=== PATIENT | male | born 1945 | race Caucasian/White ===

== ENCOUNTER → 2022-07-01 13:10 | Outpatient (BNVA) | payer MEDICARE, OTHER, SELFPAY | PROVIDERS: Visit Provider Thoracic Surgery (Cardiothoracic Vascular Surgery) | DX: T33.532A Superficial frostbite of left finger(s), initial encounter (principal); X31.XXXA Exposure to excessive natural cold, initial encounter | CPT/HCPCS: 99212 ==

== ENCOUNTER 2025-03-17 21:52 | Inpatient (IN) | payer MEDICARE, OTHER, SELFPAY ==
[2025-03-17 22:03] VITALS: BP 183/104; PULSE 88; RESP 20; TEMP 37.9; O2SAT 95
--- NOTE | 2025-03-17 22:54 | XRR_ITS ---
PROCEDURE INFORMATION: Exam: XR Chest Exam date and time: 03/17/2025 11:19 PM Age: 80 years old Clinical indication: Other: General weakness; EMS arrival for supposed fall. Patient found down on floor by family. Patient very lethargic. ; Additional info: Possible sepsis TECHNIQUE: Imaging protocol: Radiologic exam of the chest. Views: 1 view. COMPARISON: No relevant prior studies available. FINDINGS: Lungs: Interstitial opacification in the right upper lobe is present. Suggested emphysematous changes. No confluent consolidation. Pleural spaces: Unremarkable. No pleural effusion. No pneumothorax. Heart/Mediastinum: Unremarkable. No cardiomegaly. Vasculature: Atherosclerotic changes of the aorta are noted. Bones/joints: Unremarkable. XR/XR chest 1V portable [id number] IMPRESSION: Findings concerning for asymmetric pulmonary edema and/or interstitial pneumonia of the right upper lobe.
--- NOTE | 2025-03-17 22:54 | CTR_ITS ---
PROCEDURE INFORMATION: Exam: CT Head Without Contrast Exam date and time: 03/17/2025 11:32 PM Age: 80 years old Clinical indication: Injury or trauma; Blunt trauma (contusions or hematomas); Other: General weaknss; EMS arrival for supposed fall. Patient found down on floor by family. Patient very lethargic. ; Additional info: Weakness, fall TECHNIQUE: Imaging protocol: Computed tomography of the head without contrast. Radiation optimization: All CT scans at this facility use at least one of these dose optimization techniques: automated exposure control; mA and/or kV adjustment per patient size (includes targeted exams where dose is matched to clinical indication); or iterative reconstruction. COMPARISON: No relevant prior studies available. RADIATION DOSE METRICS: Total DLP (mGy-cm): 990.38 FINDINGS: Brain: Age-indeterminate lacunar infarct of the left basal ganglia. Age-indeterminate, chronic appearing right basal ganglia lacunar infarcts. Age-indeterminate right internal capsule infarct (series 11, image 32). Periventricular white matter hypoattenuation favors sequela of chronic ischemic microvascular disease. No acute intracranial hemorrhage. Cerebral ventricles: Ex vacuo ventricular dilatation is noted. Paranasal sinuses: Visualized sinuses are unremarkable. No fluid levels. Mastoid air cells: Visualized mastoid air cells are well aerated. Orbital cavities: Bilateral cataract extractions are noted. Bones: Unremarkable. No acute fracture. Soft tissues: Unremarkable. CT/CT head wo con* [id number] IMPRESSION: 1. Age-indeterminate left basal ganglia infarct. 2. 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 3. Given multifocal areas of age-indeterminate, chronic appearing focal infarcts, CTA/MRI brain without contrast can be obtained if clinical concern for acute infarct is present. 4. No acute intracranial hemorrhage. 5. White matter changes favored to represent sequela of chronic microvascular disease.
[2025-03-17] MEDS: acetaminophen 1,000 MG/100 ML PIGGYBACK 400 MG IV (23:19)
[2025-03-17 23:39] LABS: Hematocrit 50.1 % (37-53); Hemoglobin 16.80 g/dL (11.27-16.99); Mean Corpuscular HGB Conc 33.5 g/dL (30-55); Mean Corpuscular Hemoglobin 30.5 pg (27-33); Mean Corpuscular Volume 91.1 fl (82-101); Nucleated Red Blood Cells % 0 %; Platelet Count 142 10^3/cmm (157-399); Red Blood Count 5.50 10^6/uL (3.85-5.65); White Blood Count 12.71 10^3/uL (3.29-11.43)
[2025-03-17 23:53] LABS: Alanine Aminotransferase 17 U/L (0-41); Albumin Level 4.1 g/dL (3.5-5.2); Alkaline Phosphatase 94 U/L (40-130); Anion Gap 23.8 (5-19); Aspartate Amino Transferase 29 U/L (0-40); Blood Urea Nitrogen 37 mg/dL (8-23); Calcium 9.3 mg/dL (8.5-10.5); Carbon Dioxide 22 mmol/L (22-29); Chloride 93 mmol/L (98-107); Globulin 3.8 g/dL (1.3-4.6); Glucose 132 mg/dL (65-115); Lactic Sepsis W/Reflex 3.0 mmol/L (0.5-2.2); Osmolality Calculated 289 mOsm/kg (285-295); Potassium 4.8 mmol/L (3.5-5.1); Sodium 134 mmol/L (136-145); Total Protein 7.9 g/dL (6.6-8.7)
[2025-03-17 23:59] LABS: Procalcitonin 0.66 ng/mL (0-0.5)
[2025-03-18] VITALS (16 sets, daily range): BP systolic 130–145; BP diastolic 75–90; PULSE 70–101; RESP 15–20; TEMP 36.4–36.8; O2SAT 92–95
[2025-03-18 00:17] LABS: Reflex Lactate Order REFLEX LACTIC ORDERD
[2025-03-18 00:30] LABS: Glucose Urine UA Negative (Normal); Nitrate Urine Negative (Negative); Specific Gravity, Urine 1.018 (1.005-1.030)
[2025-03-18 00:35] LABS: Add Urine Microscopic? YES
--- NOTE | 2025-03-18 00:37 | CTR_ITS ---
PROCEDURE INFORMATION: Exam: CTA Head With Contrast, Arteriography Exam date and time: 03/18/2025 12:51 AM Age: 80 years old Clinical indication: Other: Lethargy/age indeterminate infarcts; Severe lethargy. Multiple age indertminate infarcts noted on head w/o. ; Additional info: Possible subacute basal ganglia infarcts on plain CT TECHNIQUE: Imaging protocol: Computed tomographic angiography of the head with contrast. Exam focused on the arteries. 3D rendering (Not supervised by radiologist): MIP and/or 3D reconstructed images were created by the technologist. Radiation optimization: All CT scans at this facility use at least one of these dose optimization techniques: automated exposure control; mA and/or kV adjustment per patient size (includes targeted exams where dose is matched to clinical indication); or iterative reconstruction. Contrast material: [id number]; Contrast volume: 100 ml; Contrast route: INTRAVENOUS (IV); COMPARISON: CT head wo con* [id number] 03/17/2025 11:32 PM RADIATION DOSE METRICS: Total DLP (mGy-cm): 436.53 FINDINGS: ANTERIOR CIRCULATION: Right internal carotid artery: Intracranial segment is patent with no significant stenosis. No aneurysm. Right middle cerebral artery: No occlusion or significant stenosis. No aneurysm. Right anterior cerebral artery: No occlusion or significant stenosis. No aneurysm. Left internal carotid artery: Intracranial segment is patent with no significant stenosis. No aneurysm. Left middle cerebral artery: No occlusion or significant stenosis. No aneurysm. Left anterior cerebral artery: No occlusion or significant stenosis. No aneurysm. POSTERIOR CIRCULATION: Right vertebral artery: No occlusion or significant stenosis. No aneurysm. Left vertebral artery: No occlusion or significant stenosis. No aneurysm. Basilar artery: No occlusion or significant stenosis. No aneurysm. Right posterior cerebral artery: No occlusion or significant stenosis. No aneurysm. Left posterior cerebral artery: No occlusion or significant stenosis. No aneurysm. Other arteries: Atherosclerosis without substantial stenosis of the carotid siphons bilaterally. Brain: No definite mass, mass effect, or midline shift. Cerebral ventricles: No ventriculomegaly. Bones/joints: Unremarkable. No acute fracture. Soft tissues: Unremarkable. PROCEDURE INFORMATION: Exam: CTA Neck With Contrast Exam date and time: 03/18/2025 12:51 AM Age: 80 years old Clinical indication: Other: Lethargy/age indeterminate infarcts; Severe lethargy. Multiple age indertminate infarcts noted on head w/o. ; Additional info: Possible subacute basal ganglia infarcts on plain CT TECHNIQUE: Imaging protocol: Computed tomographic angiography of the neck with contrast. Exam focused on the cervical segments of the vasculature. 3D rendering (Not supervised by radiologist): MIP and/or 3D reconstructed images were created by the technologist. Radiation optimization: All CT scans at this facility use at least one of these dose optimization techniques: automated exposure control; mA and/or kV adjustment per patient size (includes targeted exams where dose is matched to clinical indication); or iterative reconstruction. Contrast material: [id number]; Contrast volume: 100 ml; Contrast route: INTRAVENOUS (IV); COMPARISON: CT head wo con* [id number] 03/17/2025 11:32 PM RADIATION DOSE METRICS: Total DLP (mGy-cm): 436.53 FINDINGS: Right common carotid artery: Atherosclerosis of the right common carotid without focal stenosis. Right internal carotid artery: 35% stenosis at the proximal right internal carotid artery secondary to focal atherosclerosis . Right external carotid artery: No occlusion or stenosis of the origin. Left common carotid artery: Atherosclerosis of the left common carotid without focal stenosis. Left internal carotid artery: No stenosis of the extracranial segment. No dissection or occlusion. Left external carotid artery: No occlusion or stenosis of the origin. Right vertebral artery: No stenosis. No dissection or occlusion. Left vertebral artery: No stenosis. No dissection or occlusion. Right subclavian artery: Mild stenosis of the distal right subclavian artery (series 5, image 33) secondary to focal atherosclerosis up to 24%. Soft tissues: Normal. No significant soft tissue swelling. Bones/joints: Degenerative joint and disc disease is seen in the imaged spine. Lungs: Partially imaged consolidation in the dependent right upper lobe. Centrilobular emphysematous changes are present. CT/CT angio headneck* [id number] IMPRESSION: No large vessel stenosis or occlusion. IMPRESSION: 1. No large vessel occlusion or stenosis in the neck. 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 2. Partially imaged findings concerning for right upper lobe pneumonia. Correlate with patient history/respiratory status. 3. Emphysema. REFERENCES: NASCET CRITERIA. The degree of stenosis in the cervical segment of the internal carotid artery is based on NASCET criteria. Normal is no stenosis. Mild is less than 50% stenosis. Moderate is 50-69% stenosis. Severe is 70% to 99% stenosis. Total occlusion is no detectable patent lumen.
[2025-03-18 00:53] LABS: UA Slide Review UA Slide Review Perf
[2025-03-18] MEDS: iohexol 350 mg/mL 500 mL Btl (per mL) IV (00:53)
--- NOTE | 2025-03-18 02:14 | W.ED.WEAKNES ---
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 Over the past week he had been walking slower and reportedly ate very little, with no complaints voiced to the friend. EMS brought him in from [place], [place] with T 100.3, BP 183/104, HR 88, RR 20, SpO2 95% RA. On arrival, he was described as altered and somnolent with a coarse wet-sounding cough. No report of focal deficits. Friend had to break in the door; pt stated he was coming to the door but did not get up. No additional ROS provided. Physical Exam Narrative: EXAM NARRATIVE: Gen: Cachectic, somnolent, altered. HEENT: Dry mucous membranes. Lungs: Coarse, wet-sounding cough. Neuro: Altered, somnolent; no obvious lateralizing deficits noted. HENMT: COMMON NORMALS: normocephalic and atraumatic HEAD & SCALP: normocephalic and atraumatic Eye: COMMON NORMALS: Equal, round and reactive pupils present, EOMs intact bilaterally and no scleral icterus PUPIL: Yes Equal, round and reactive pupils present GI: COMMON NORMALS: Normal to inspection, nondistended, normoactive bowel sounds present, Soft to palpation and non-tender PALPATION: Yes Soft to palpation Skin: COMMON NORMALS: no rashes or lesions noted GENERAL SKIN EXAM: no rashes or lesions noted Course Vital Signs: Vital signs: Vital Signs Temperature 98.2 F 03/18/25 00:38 Pulse Rate 88 03/18/25 00:38 Respiratory Rate 18 03/18/25 00:38 Blood Pressure 131/75 03/18/25 00:38 Pulse Oximetry 92 03/18/25 00:38 Oxygen Delivery Me thod Room Air 03/18/25 00:38 MDM - Weakness Medical Decision Making 80 yo M found down with weakness, week of slowed gait and poor PO intake, now febrile and altered with wet cough. Friend reports he is usually active and independent. VS notable for fever and severe HTN; SpO2 95% RA. PE: cachectic, dry mucosa, somnolent/altered, coarse wet cough, no clear focal deficits. DDx includes respiratory etiology per provider. Stroke not excluded given altered state and found-down scenario, though no lateralizing deficits on exam. Meningitis not suspected. Dehydration considered given dry mucosa and poor intake. Rhabdomyolysis considered given down time. Broad infectious/metabolic evaluation initiated. Respiratory pathogen panel sent. CK ordered to assess for rhabdomyolysis. Further testing to evaluate for infection, dehydration, and intracranial processes planned per provider. Results pending. CT head and CTA head do not show clear evidence of stroke. X-ray of the lungs is concerning for right upper lobe pneumonia for which she was started on cefepime. With his coarse, wet cough I believe this to be the case. Creatinine is 2.5 and I am uncertain of his baseline kidney function thus he may have acute kidney injury giving a component of metabolic encephalopathy contributing to his weakness. He will be started on cefepime and admitted to the hospitalist service for further observation care Lab Data 03/17/25 23:21 03/17/25 23:21 Radiology Impressions Chest X-Ray 03/17/25 22:54 IMPRESSION: Findings concerning for asymmetric pulmonary edema and/or interstitial pneumonia of the right upper lobe. Head CT 03/17/25 22:54 IMPRESSION: 1. Age-indeterminate left basal ganglia infarct. 2. 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 3. Given multifocal areas of age-indeterminate, chronic appearing focal infarcts, CTA/MRI brain without contrast can be obtained if clinical concern for acute infarct is present. 4. No acute intracranial hemorrhage. 5. White matter changes favored to represent sequela of chronic microvascular disease. ADDENDUM: 03/18/25 0039 THIS REPORT CONTAINS FINDINGS THAT MAY BE CRITICAL TO PATIENT CARE. The findings were verbally communicated via telephone conference with HAMMAD WALKER at 12:37 AM CDT on 03/18/2025. The findings were acknowledged and understood. Head/Neck CTA 03/18/25 00:37 IMPRESSION: No large vessel stenosis or occlusion. IMPRESSION: 1. No large vessel occlusion or stenosis in the neck. 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 2. Partially imaged findings concerning for right upper lobe pneumonia. Correlate with patient history/respiratory status. 3. Emphysema. REFERENCES: NASCET CRITERIA. The degree of stenosis in the cervical segment of the internal carotid artery is based on NASCET criteria. Normal is no stenosis. Mild is less than 50% stenosis. Moderate is 50-69% stenosis. Severe is 70% to 99% stenosis. Total occlusion is no detectable patent lumen. Laboratory Results WBC 12.71 10^3/uL (3.29-11.43) H 03/17/25 23:21 RBC 5.50 10^6/uL (3.85-5.65) 03/17/25 23:21 Hgb 16.80 g/dL (11.27-16.99) 03/17/25 23:21 Hct 50.1 % (37-53) 03/17/25 23:21 MCV 91.1 fl (82-101) 03/17/25 23:21 MCH 30.5 pg (27-33) 03/17/25 23:21 MCHC 33.5 g/dL (30-55) 03/17/25 23:21 RDW 13.9 % (12.1-15.1) 03/17/25 23:21 Plt Count 142 10^3/cmm (157-399) L 03/17/25 23:21 MPV 11.9 fL (7.4-10.4) H 03/17/25 23:21 Neut % (Auto) 81.2 % 03/17/25 23:21 Lymph % (Auto) 12.7 % 03/17/25 23:21 [place] % (Auto) 5.7 % 03/17/25 23:21 Eos % (Auto) 0.0 % 03/17/25 23: Baso % (Auto) 0.2 % 03/17/25 23:21 Neut # (Auto) 10.30 10^3/uL (1.8-7.7) H 03/17/25 23:21 Lymph # (Auto) 1.6 10^3/uL (0.8-4.8) 03/17/25 23:21 [place] # (Auto) 0.7 10^3/uL (0.2-0.9) 03/17/25 23:21 Eos # (Auto) 0.0 10^3/uL (0.0-0.8) 03/17/25 23:21 Baso # (Auto) 0.0 10^3/uL (0.0-0.1) 03/17/25 23:21 Nucleated RBC % (auto) 0 % 03/17/25 23:21 Nucleated RBCs # 0.0 /100WBC 03/17/25 23:21 Sodium 134 mmol/L (136-145) L 03/17/25 23:21 Potassium 4.8 mmol/L (3.5-5.1) 03/17/25 23:21 Chloride 93 mmol/L (98-107) L 03/17/25 23:21 Carbon Dioxide 22 mmol/L (22-29) 03/17/25 23:21 Anion Gap 23.8 (5-19) H 03/17/25 23:21 BUN 37 mg/dL (8-23) H 03/17/25 23:21 Creatinine 2.5 mg/dL (0.7-1.2) H 03/17/25 23:21 GFR Calculation Not Reportable 03/17/25 23:21 Glucose 132 mg/dL (65-115) H 03/17/25 23:21 Calculated Osmolality 289 mOsm/kg (285-295) 03/17/25 23:21 Lactic Acid 3.0 mmol/L (0.5-2.2) H 03/17/25 23:21 Calcium 9.3 mg/dL (8.5-10.5) 03/17/25 23:21 Total Bilirubin 0.7 mg/dL (0.15-1.2) 03/17/25 23:21 AST 29 U/L (0-40) 03/17/25 23:21 ALT 17 U/L (0-41) 03/17/25 23:21 Alkaline Phosphatase 94 U/L (40-130) 03/17/25 23:21 Creatine Kinase 328 U/L (39-308) H* 03/17/25 23:21 Total Protein 7.9 g/dL (6.6-8.7) 03/17/25 23:21 Albumin 4.1 g/dL (3.5-5.2) 03/17/25 23:21 Globulin 3.8 g/dL (1.3-4.6) 03/17/25 23:21 Procalcitonin 0.66 ng/mL (0-0.5) H 03/17/25 23:21 Urine Color Dark yellow (Yellow) A 03/18/25 00:15 Urine Appearance Cloudy (CLEAR) A 03/18/25 00:15 Urine pH 5.0 (5-7) 03/18/25 00:15 Ur Specific [place] 1.018 (1.005-1.030) 03/18/25 00:15 Urine Protein 2+ (Negative) A 03/18/25 00:15 Urine Glucose (UA) Negative (Normal) 03/18/25 00:15 Urine Ketones Trace (Negative) 03/18/25 00:15 Urine Blood 1+ (Negative) A 03/18/25 00:15 Urine Nitrate Negative (Negative) 03/18/25 00:15 Urine Bilirubin Negative (Negative) 03/18/25 00:15 Urine Urobilinogen 1.0 mg/dL (Negative) 03/18/25 00:15 Ur Leukocyte Esterase Trace (Negative) A 03/18/25 00:15 Urine RBC 0-2 /hpf (0-2) 03/18/25 00:15 Urine WBC 11-20 /hpf (0-5) H 03/18/25 00:15 Ur Squamous Epith Cells 21-50 /hpf (0-5) H 03/18/25 00:15 Amorphous Sediment Not Reportable 03/18/25 00:15 Urine Bacteria None seen /hpf (NONE) 03/18/25 00:15 Hyaline Casts 82.33 /lpf 03/18/25 00:15 Fine Granular Casts 0-4 /lpf H 03/18/25 00:15 Other Casts Waxy /lpf 03/18/25 00:15 All radiology interpretation(s) finalized by discharge Discharge Plan Discharge Condition: Stable Print Language: New Zealander Coding Level of Care Code 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
--- NOTE | 2025-03-18 02:16 | P.HP_ITS ---
Providers/Chief Complaint 2 Admitting Physician: Jaison Vaughn MD Chief Complaint: WEAKNESS History of Present Illness Quoc Spence Jr is a 80 year old male who lives in [place]. He was missed when he did not show up for lunch so one of the staff at the restaurant or friend went to his house and found him down. He altered mental status and temperature of 100.3. He was brought in to the emergency department by ambulance where he was found to have CK3 28 and a creatinine of 2.5 as well as a lactic acid of 3. Patient received fluid boluses and cefepime for right upper lobe pneumonia. Lactic acid dropped to 1.8. Patient has a Hughes and is making urine. Serology came back for COVID-positive disease he is not requiring oxygen with room air sat 94% Patient is slow to respond to questioning. He reports minimal weight loss and states that he is always been thin. He does not recall being found down on the floor and states he lives alone. Patient reports quitting alcohol 1 week ago and chronically drank 1-2 shots a day. He smokes 1 pack/day for 50 years and states he quit drugs 2 years ago which consisted of weed and cocaine but not heroin or meth. Patient has a very flat affect and although he answers questions reliability is somewhat questionable. Patient tells me he is 80 years old birthdate 1945 but he thought he was in [place] did know he was in [place] but admitted to come to the hospital by ambulance and states he lives in [place]. He thought it was March 15, 2010 Review of Systems 2 Narrative: General denies fevers chills states he is cold or hot depending on the environment. Admits to weight loss but stated only a couple pounds at night 30 pound weight loss over the similar severe weight loss. Cardiovascular no chest pain palpitations Respiratory positive for coughing states he has done that as he is a smoker denies production with his cough GI no nausea vomiting diarrhea constipation no dysuria hematuria incontinence Neuro no seizures strokes limb weakness Malignancy negative Hematologic denies clots in the legs or lungs Medications/Allergies Allergies Allergy/AdvReac Type Severity Reaction Status Date / Time No Known Allergies Allergy Verified 03/18/25 03:10 PFSH Acute 2 PFSH: Medical History (Updated 03/18/25 @ 03:37 by Jaison Vaughn MD) Tobacco abuse Social History (Updated 03/18/25 @ 03:34 by Jaison Vaughn MD) Smoking and tobacco/nicotine status: heavy tobacco/nicotine user cigarettes Packs smoked per day: 1 Years cigarettes smoked: 50 Alcohol intake: former Year of sobriety/quit date alcohol: 2024 Former alcohol use details: States he quit 1 week ago as of questioning 03/18/2025 Substance/Drug Use: former Date of last use: Estimated 2 years ago as of 03/18/2025 Former substance use details: Used cocaine and weed denies meth or heroin Additional social history: Wants full CODE STATUS as discussed with Jaison Vaughn MD on 03/18/2025. States lives alone is and his next of kin is Jazmine Bruce who lives in [place] and his daughter. He states he talked to her about a month ago but does not talk to her often enough. He has listed a friend to notify as Collette Junior [phone] patient states his daughter was notified by a friend. Previous occupational history: Worked in [employer] for [employer] in [place] for 30 years Vitals/I&O/Wt Last Vital Signs Temp 98.2 F 03/18/25 00:38 Pulse 88 03/18/25 00:38 Resp 18 03/18/25 00:38 BP 131/75 03/18/25 00:38 Pulse Ox 92 03/18/25 00:38 O2 Del Method Room Air 03/18/25 00:38 03/17/25 03/17/25 03/18/25 14:59 22:59 06:59 Intake Total 0 / 0 Balance 0 / 0 Physical Exam 2 Narrative: General well-developed chronically ill-appearing thin male disheveled Oropharynx edentulous Mallampati 1 yellowish-green phlegm in the left posterior pharynx CV regular rate and rhythm Lungs moist sounding cough nonproductive but does demonstrate yellowish-green phlegm in the throat Abdomen positive bowel tones soft nontender Calves no tenderness cords pretibial edema Skin warm and dry Mentation is flat affect he is alert and oriented to person birthdate age in February but thought it was 19 February/2010. He did not know how he got here or who called the ambulance Data 03/17/25 23:21 03/17/25 23:21 Micro: Microbiology 09/20/25 23:21 Blood Culture - Preliminary Blood SPECIMEN COLLECTED A&P Assessment and plan 1. COVID-19: Patient not requiring oxygen but he does have moist cough and right upper lung pneumonia with suspected bacterial superinfection. Will check D-dimer and CRP. If significant elevated will increase his anticoagulation and steroids 2. 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 Acute kidney injury: Fluid hydration and recheck BMP at 1400 4. Altered mental status: Dehydrated and malaised. Patient is cooperative. Unsure of his baseline will follow 5. Tobacco abuse: Start nicotine patch PDMP PDMP Reviewed: Not Reviewed Attestations 2 Medical Necessity Statement*: Patient is admitted to hospital with right upper lung pneumonia that looks bacterial as well as COVID 19 positive. He is anticipated to require greater than 2 midnights Coding Level of Care Code Acute Code for Chg Fwd Diagnoses COVID-19 U07.1 Community acquired pneumonia of right upper lobe of lung J18.9 Acute kidney injury N17.9 Altered mental status R41.82 Tobacco abuse Z72.0
[2025-03-18] MEDS: cefepime 1,000 mg SDV 1000 MG IVP (02:24)
[2025-03-18 02:35] LABS: Coronavirus 229E,HKU1,NL63,OC4 Not Detected (NOT DETECT); Parainfluenza Virus Type 1 Not Detected (NOT DETECT); Parainfluenza Virus Type 2 Not Detected (NOT DETECT); Parainfluenza Virus Type 3 Not Detected (NOT DETECT); Parainfluenza Virus Type 4 Not Detected (NOT DETECT)
[2025-03-18 02:41] LABS: Lactic Acid level (Lactate) 1.8 mmol/L (0.5-2.2)
[2025-03-18 03:13] LABS: SARS-COV-2 Detected (NOT DETECT)
[2025-03-18] MEDS: sodium chlor 0.9% + KCl 20 mEq 20 MEQ/1,000 ML BAG 100 MEQ IV ×3 (03:41→23:31)
[2025-03-18 04:06] LABS: INR 0.87 (0.8-1.2); Partial Thromboplastin Time 33.2 SECONDS (23.9-36.7); Prothrombin Time 12.50 SECONDS (12.1-14.9)
--- NOTE | 2025-03-18 08:20 | PC.PHAR ---
Addendum entered by Юлия Greer 03/18/25 09:21: Pt states he takes no maintenance medications. He takes a multivitamin and vitamin d3. Original Note: Pt did not respond in the room. Will follow up in an hour @9:20am
[2025-03-18] MEDS: cefTRIAXone 1,000 mg SDV 1000 MG IVP (08:36)
--- NOTE | 2025-03-18 08:43 | USCV_ITS ---
SpenceQuoc Age: 80 Gender: M : 1945 Exam Date: 03/18/2025 13:01 Ordering Phys: Johnny Chaney MD Technologist: Josse Baca Exam Location: [facility] [place] Indication: cva BP: 134 / 87 HR: 74 Rhythm: Sinus Technical Quality: Adequate MEASUREMENTS (Male / Female) Normal Values 2D ECHO LV Diastolic Diameter PLAX 4.1 cm 4.2 - 5.9 / 3.9 - 5.3 cm IVS Diastolic Thickness 0.6 cm 0.6 - 1.0 / 0.6 - 0.9 cm IVS Systolic Thickness 1.0 cm LVPW Diastolic Thickness 0.8 cm 0.6 - 1.0 / 0.6 - 0.9 cm LVPW Systolic Thickness 1.1 cm LVOT Diameter 2.0 cm LV Ejection Fraction 2D Teich 59.9 % LV Ejection Fraction MOD 4C 58.6 % LV Ejection Fraction MOD 2C 73.4 % LV Ejection Fraction 2C AL 74.6 % LA Diameter 3.0 cm RA Systolic Volume 4C AL 41.8 ml RA Systolic Volume 4C MOD 41.4 ml LA Sys Volume AL 42.1 cm cubed LA Sys Volume Index AL 25.7 cm cubed/m squared Aorta at Sinotubular Diameter 1.7 cm IVC Diameter 1.8 cm M-MODE LA Ao Ratio MM 1.5 AV Cusp Separation MM 1.5 cm DOPPLER AV Peak Velocity 128.7 cm/s LVOT Peak Velocity 83.0 cm/s AV Area Cont Eq vti 2.1 cm squared AV Area Cont Eq pk 2.0 cm squared MV Peak Velocity 102.0 cm/s MV Area PHT 4.4 cm squared Mitral E to A Ratio 1.2 TV Peak Velocity 326.0 cm/s TR Peak Velocity 336.0 cm/s TR Peak Gradient 45.2 mmHg TR Mean Velocity 273.0 cm/s TR Mean Gradient 32.2 mmHg TR Velocity Time Integral 80.2 cm PV Peak Velocity 86.0 cm/s RV Ejection Time 0.2 s FINDINGS Left Ventricle Normal left ventricular size and systolic function, EF 74%.no regional wall motion abnormalities. Mild left ventricular hypertrophy. Right Ventricle The right ventricle is normal in size and function. Right Atrium The right atrium is normal in size. Left Atrium The left atrium is normal in size. Mitral Valve No gross abnormalities noted Aortic Valve Thickened aortic valve. Mild aortic valve calcification. Tricuspid Valve Trace tricuspid valve regurgitation. Pulmonic Valve Pulmonic valve not well visualized. Pericardium No pericardial effusion. Aorta Normal ascending aorta dimension. IVC The inferior vena cava appears normal. CONCLUSIONS Normal left ventricular size and systolic function, EF 74%.no regional wall motion abnormalities. Mild left ventricular hypertrophy. Thickened aortic valve. Mild aortic valve calcification. Trace tricuspid valve regurgitation. Estimated pulmonary artery peak systolic pressure 35 mm of Hg. There is no pericardial effusion. There are no intracardiac masses. No similar previous studies are available for comparison Dr Annika Perez MD FACC (Electronically Signed) Final Date: 18 March 2025 17:30 S
[2025-03-18 09:43] LABS: Anion Gap 18.5 (5-19); Blood Urea Nitrogen 30 mg/dL (8-23); Calcium 8.3 mg/dL (8.5-10.5); Carbon Dioxide 22 mmol/L (22-29); Chloride 100 mmol/L (98-107); Glucose 120 mg/dL (65-115); Osmolality Calculated 289 mOsm/kg (285-295); Potassium 4.5 mmol/L (3.5-5.1); Sodium 136 mmol/L (136-145)
--- NOTE | 2025-03-18 09:56 | MRR_ITS ---
PROCEDURE INFORMATION: Exam: MR Head Without Contrast Exam date and time: 03/18/2025 12:02 PM Age: 80 years old Clinical indication: Altered mental status/memory loss; Confusion or disorientation; Additional info: CVA TECHNIQUE: Imaging protocol: Magnetic resonance imaging of the head without contrast. COMPARISON: CT angio headneck* [id number] 03/18/2025 12:51 AM FINDINGS: Limitations: Some sequences are degraded and nondiagnostic due to patient motion artifact. Brain: No diffusion restriction to suggest acute to early subacute infarct. No susceptibility artifact to suggest acute intracranial hemorrhage. The T2 FLAIR sequence is significantly degraded however there are suggested periventricular and subcortical white matter hyperintensities. No substantial mass effect or midline shift on limited evaluation. There are chronic appearing bilateral basal ganglia lacunar infarcts. Cerebral ventricles: There is generalized atrophy resulting in prominence of the ventricles and sulci without overt evidence of acute hydronephrosis. Bones: No gross bone marrow signal abnormality. Paranasal sinuses: Paranasal sinuses are grossly clear. Mastoid air cells: No evidence of a large mastoid effusion. Orbital cavities: No overt orbital abnormality. Soft tissues: Grossly unremarkable as imaged. MR/MR head wo con* [id number] IMPRESSION: 1. Limited exam due to patient motion artifact where several sequences are nondiagnostic. 2. Of note, the DWI/ADC and GRE sequences are adequate without evidence of recent infarct or acute intracranial hemorrhage. 3. Suggested atrophy and supratentorial white matter T2 FLAIR hyperintensities, nonspecific although characteristic of chronic small vessel disease.
--- NOTE | 2025-03-18 12:56 | P.PN_ITS ---
Subjective 2 Subjective: - Patient was seen this morning - No family members at bedside - He is alert to person, to place, not t o time, he can follow commands, but at times is confused has a flat affect - I reviewed his imaging with him, CT sc an shows left basal ganglia infarct, also has a right basal ganglia infarct right internal capsule, multifocal areas - He is not exactly sure if he has had s trokes - I discussed with him the nature of the condition that he was found and he is not exactly sure - During my discussion, I can discern th at he does have word finding difficulty at times, he has a very slight left facial droop, mild slurring of his words, on examination he does have left upper extremity weakness compared to the right 4 out of 5 compared to 5 out of 5 on the right, does have more left lower extremity weakness compared to the right at with a 3 out of 5 compared to 5 on the right -On ER presentation, he was found down, somnolent, - I discussed with Quoc that what I t hink what has happened is that he has had a stroke, and was on the ground for some period of time before his friends discovered him, and he has developed a right upper lobe pneumonia from aspiration during this event - Unfortunately discussed with Quoc t hat he is out of the tPA window, as his last known well normal is unknown, and that he is not a thrombectomy candidate as he has no large vessel occlusion - Discussed with him that I could reach out to his daughter for more information, he cannot exactly tell me his daughter's name or he does not know her number - At times he spaces out, I can discern the seizure-like episodes - Discussed continue antibiotics - MRI of the brain - Stroke workup - PT OT, speech therapy eval Vitals/I&O/Wt Last Vital Signs Temp 97.7 F 03/18/25 11:41 Pulse 92 03/18/25 11:41 Resp 18 03/18/25 11:41 BP 134/87 03/18/25 11:41 Pulse Ox 92 03/18/25 11:41 O2 Del Method Room Air 03/18/25 11:41 03/17/25 03/18/25 03/18/25 22:59 06:59 14:59 Intake Total 0 / 0 2100 / 2100 240 / 240 Output Total 550 / 550 Balance 0 / 0 1550 / 1550 240 / 240 Weight last 48 hrs Weight 54.159 kg Physical Exam 2 Narrative: Malnourished appearing, cachectic, physical deconditioning, critical malnutrition Const: COMMON NORMALS: no acute distress ORIENTATION/CONSCIOUSNESS: Yes awake, Yes oriented to person and Yes confused; not oriented to place and not oriented to time OTHER: At times does become quite confused, spaces out, requires frequent redirection, flat affect HENMT: OTHER: Very subtle left facial droop, does have slurring of his words at times it conversations, does have at times receptive aphasia but difficulty discerning between his global encephalopathy Eye: COMMON NORMALS: Equal, round and reactive pupils present PUPIL: Yes Equal, round and reactive pupils present Resp: COMMON NORMALS: normal respiratory effort, No retractions and No use of accessory muscles AUSCULTATION: wheezes Cardio: COMMON NORMALS: regular rate, regular rhythm, S1 normal heart sound present and S2 normal heart sound present RATE: regular rate RHYTHM: r egular rhythm HEART SOUNDS: S1 normal heart sound present and S2 normal heart sound present GI: COMMON NORMALS: Normal to inspection, nondistended, normoactive bowel sounds present and non-tender Extremity: COMMON NORMALS: no pedal edema Neuro: SENSORIUM/ORIENTATION: Yes oriented to person, No oriented to place and No oriented to time OTHER: Neurologic testing is difficult given his global encephalopathy at times -His left upper extremity strength is 4- 5 -Left lower extremity strength is 3 out of 5 -Hard for me to have him follow commands to do [id number] -Slight left facial droop, slight slurri ng of his words Urinary Catheter Management: Uhghes: Cath Placed During This Visit: yes Reason for Continuing Indwelling Catheter: Acute Urinary Retention or Obstruction Urinary Catheter Date of Insertion: 03/18/25 Urinary Catheter Time of Insertion: 03:36 Data 03/17/25 23:21 03/18/25 08:57 Micro: Microbiology 03/17/25 23:21 Blood Culture - Preliminary Blood SPECIMEN COLLECTED A&P Assessment and plan 1. Acute kidney injury: 2. Altered mental status: 3. Tobacco abuse: 4. Acute CVA (cerebrovascular accident): 5. COVID-19: 6. Community acquired pneumonia of right upper lobe of lun. Aspiration pneumonia: 8. Physical deconditionin. Protein calorie malnutrition: Plan: Acute CVA - Slight left facial droop, slight slurring of his words, receptive aphasia, left upper extremity weakness, left lower extremity weakness, this is all in the setting of global encephalopathy - CT head showing CT/CT head wo con* [id number] IMPRESSION: 1. Age-indeterminate left basal ganglia infarct. 2. 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 3. Given multifocal areas of age-indeterminate, chronic appearing focal infarcts, CTA/MRI brain without contrast can be obtained if clinical concern for acute infarct is present. 4. No acute intracranial hemorrhage. 5. White matter changes favored to represent sequela of chronic microvascular disease. CT/CT angio headneck* [id number] IMPRESSION: No large vessel stenosis or occlusion. IMPRESSION: 1. No large vessel occlusion or stenosis in the neck. 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 2. Partially imaged findings concerning for right upper lobe pneumonia. Correlate with patient history/respiratory status. 3. Emphysema. - His NIH stroke scale 7 - Last known well normal is unknown, found down by friends, friends had to break it in, according to ER notes he been walking slower for the last few weeks, eating less, somnolent on arrival - not a tPA candidate, as last known well normal is likely greater than 24 hours - Not embolectomy candidate - What I think has happened is that he had a stroke, which caused him to go down, and aspirated Plan - Monitor in the hospital - PT OT - Speech therapy eval - NIH stroke scale - Neurochecks - Cardiac echo - MRI brain - Aspirin, statin - Will monitor closely Right upper lobe pneumonia, aspiration pneumonia - Rocephin - Azithromycin Dehydration, MARIANNE - IV fluids COVID-19 - Relatively asymptomatic, on room air - Monitor hold off of fluids, hold off on remdesivir Diffuse encephalopathy - Component of acute stroke, right upper lobe pneumonia, COVID-19, dehydration - Monitor mentation Physical deconditioning, protein, malnutrition cachexia, muscle loss - PT OT Full code Lovenox for DVT prophylaxis PDMP PDMP Reviewed: Not Reviewed Attestations 2 Medical Necessity Statement*: Patient requires hospitalization, inpatient, greater than 2 midnights, for acute CVA, right upper lobe pneumonia, dehydration, COVID-19, diffuse encephalopathy Diagnoses Acute kidney injury N17.9 Altered mental status R41.82 Tobacco abuse Z72.0 Acute CVA (cerebrovascular accident) I63.9 COVID-19 U07.1 Community acquired pneumonia of right upper lobe of lung J18.9 Aspiration pneumonia J69.0 Physical deconditioning R53.81 Protein calorie malnutrition E46
--- NOTE | 2025-03-18 17:09 | PC.NURSE ---
Notified Dr. Chaney patient pulled IV half out, infiltrated. Applied heat to left arm.
[2025-03-19] VITALS (9 sets, daily range): BP systolic 126–154; BP diastolic 70–88; PULSE 67–104; RESP 16–20; TEMP 36.5–38.2; O2SAT 93–95; BMI 16.2
[2025-03-19 03:37] LABS: Hematocrit 37.9 % (37-53); Hemoglobin 12.90 g/dL (11.27-16.99); Mean Corpuscular HGB Conc 34.0 g/dL (30-55); Mean Corpuscular Hemoglobin 30.7 pg (27-33); Mean Corpuscular Volume 90.2 fl (82-101); Nucleated Red Blood Cells % 0 %; Platelet Count 121 10^3/cmm (157-399); Red Blood Count 4.20 10^6/uL (3.85-5.65); White Blood Count 12.06 10^3/uL (3.29-11.43)
[2025-03-19 05:34] LABS: Anion Gap 18.5 (5-19); Blood Urea Nitrogen 18 mg/dL (8-23); Calcium 8.5 mg/dL (8.5-10.5); Carbon Dioxide 21 mmol/L (22-29); Chloride 103 mmol/L (98-107); Creatinine Clr Calc Pharmacy 60.0935; Glucose 100 mg/dL (65-115); Osmolality Calculated 288 mOsm/kg (285-295); Potassium 4.5 mmol/L (3.5-5.1); Sodium 138 mmol/L (136-145)
[2025-03-19] MEDS: cefTRIAXone 1,000 mg SDV 1000 MG IVP (08:17)
[2025-03-19] MEDS: sodium chlor 0.9% + KCl 20 mEq 20 MEQ/1,000 ML BAG 100 MEQ IV (08:18)
--- NOTE | 2025-03-19 15:26 | P.PN_ITS ---
Subjective 2 Subjective: Patient was seen this morning, he is working with speech therapy, he is much more alert and awake, can follow commands, today I cannot discern some receptive aphasia, some productive aphasia although minimal, no facial droop on the left, no left upper extremity weakness, no left lower extremity weakness that I can discern, denies any chest pain, palpitation, shortness of breath, he is much more alert awake, is drowsy at times, does require frequent redirection Vitals/I&O/Wt Last Vital Signs Temp 97.8 F 03/19/25 15:22 Pulse 88 03/19/25 15:22 Resp 17 03/19/25 15:22 BP 149/84 03/19/25 15:22 Pulse Ox 94 03/19/25 15:22 O2 Del Method Room Air 03/19/25 15:22 03/19/25 03/19/25 03/19/25 06:59 14:59 22:59 Intake Total 871.667 / 2781.667 938.333 / 938.333 250 / 1188.333 Output Total 1200 / 2150 600 / 600 Balance -328.333 / 631.667 338.333 / 338.333 250 / 588.333 Weight last 48 hrs Weight 56.744 kg Weight 54.159 kg Weight 54.159 kg Physical Exam 2 Const: COMMON NORMALS: no acute distress and patient oriented x3 Resp: COMMON NORMALS: normal respiratory effort, No retractions, No use of accessory muscles and clear to auscultation bilaterally AUSCULTATION: clear to auscultation bilaterally Cardio: COMMON NORMALS: regular rate, regular rhythm, S1 normal heart sound present and S2 normal heart sound present RATE: regular rate RHYTHM: r egular rhythm HEART SOUNDS: S1 normal heart sound present and S2 normal heart sound present GI: COMMON NORMALS: Normal to inspection, nondistended, normoactive bowel sounds present, Soft to palpation and non-tender PALPATION: Yes Soft to palpation Extremity: COMMON NORMALS: no pedal edema Neuro: COMMON NORMALS: patient oriented x3, CN's II-XII intact bilaterally and moves all extremities Psych: COMMON NORMALS: mental status grossly normal Urinary Catheter Management: Hughes: Cath Placed During This Visit: yes Reason for Continuing Indwelling Catheter: Acute Urinary Retention or Obstruction Urinary Catheter Date of Insertion: 03/18/25 Urinary Catheter Time of Insertion: 03:36 Data 03/19/25 02:53 03/19/25 02:53 Micro: Microbiology 03/17/25 23:21 Blood Culture - Preliminary Blood NEGATIVE TO DATE A&P Assessment and plan 1. Acute kidney injury: 2. Altered mental status: 3. Tobacco abuse: 4. Acute CVA (cerebrovascular accident): 5. COVID-19: 6. Community acquired pneumonia of right upper lobe of lun. Aspiration pneumonia: 8. Physical deconditionin. Protein calorie malnutrition: Plan: Acute CVA - Slight left facial droop, slight slurring of his words, receptive aphasia, left upper extremity weakness, left lower extremity weakness, this is all in the setting of global encephalopathy - CT head showing CT/CT head wo con* [id number] IMPRESSION: 1. Age-indeterminate left basal ganglia infarct. 2. 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 3. Given multifocal areas of age-indeterminate, chronic appearing focal infarcts, CTA/MRI brain without contrast can be obtained if clinical concern for acute infarct is present. 4. No acute intracranial hemorrhage. 5. White matter changes favored to represent sequela of chronic microvascular disease. CT/CT angio headneck* [id number] IMPRESSION: No large vessel stenosis or occlusion. IMPRESSION: 1. No large vessel occlusion or stenosis in the neck. 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 2. Partially imaged findings concerning for right upper lobe pneumonia. Correlate with patient history/respiratory status. 3. Emphysema. - His NIH stroke scale 7 - Last known well normal is unknown, found down by friends, friends had to break it in, according to ER notes he been walking slower for the last few weeks, eating less, somnolent on arrival - not a tPA candidate, as last known well normal is likely greater than 24 hours - Not embolectomy candidate - What I think has happened is that he had a stroke, which caused him to go down, and aspirated -Symptoms significantly improved, does have some receptive aphasia, some productive aphasia, no left upper or left lower extremity weakness Plan - Monitor in the hospital - PT OT - Speech therapy eval - NIH stroke scale - Neurochecks - Cardiac echo - MRI brain no acute findings - Aspirin, statin - Will monitor closely Daughter does report a history of alcoholism - Will start on thiamine and folic acid - Monitor for withdrawals Right upper lobe pneumonia, aspiration pneumonia - Rocephin - Azithromycin Dehydration, MARIANNE - IV fluids, will de-escalate COVID-19 - Relatively asymptomatic, on room air - Monitor hold off of fluids, hold off on remdesivir Diffuse encephalopathy - Component of acute stroke, right upper lobe pneumonia, COVID-19, dehydration - Monitor mentation Physical deconditioning, protein, malnutrition cachexia, muscle loss - PT OT Full code Lovenox for DVT prophylaxis PDMP PDMP Reviewed: Not Reviewed Attestations 2 Medical Necessity Statement*: Patient requires hospitalization for acute CVA, pneumonia, fall, MARIANNE Diagnoses Acute kidney injury N17.9 Altered mental status R41.82 Tobacco abuse Z72.0 Acute CVA (cerebrovascular accident) I63.9 COVID-19 U07.1 Community acquired pneumonia of right upper lobe of lung J18.9 Aspiration pneumonia J69.0 Physical deconditioning R53.81 Protein calorie malnutrition E46
[2025-03-20] VITALS (9 sets, daily range): BP systolic 130–169; BP diastolic 77–95; PULSE 73–98; RESP 16–29; TEMP 36.7–37.3; O2SAT 92–95
[2025-03-20 04:50] LABS: Hematocrit 37.6 % (37-53); Hemoglobin 12.90 g/dL (11.27-16.99); Mean Corpuscular HGB Conc 34.3 g/dL (30-55); Mean Corpuscular Hemoglobin 30.7 pg (27-33); Mean Corpuscular Volume 89.5 fl (82-101); Nucleated Red Blood Cells % 0 %; Platelet Count 173 10^3/cmm (157-399); Red Blood Count 4.20 10^6/uL (3.85-5.65); White Blood Count 11.00 10^3/uL (3.29-11.43)
[2025-03-20 05:29] LABS: Anion Gap 17.1 (5-19); Blood Urea Nitrogen 13 mg/dL (8-23); Calcium 8.4 mg/dL (8.5-10.5); Carbon Dioxide 21 mmol/L (22-29); Chloride 99 mmol/L (98-107); Creatinine Clr Calc Pharmacy 62.0633; Glucose 117 mg/dL (65-115); Osmolality Calculated 277 mOsm/kg (285-295); Potassium 4.1 mmol/L (3.5-5.1); Sodium 133 mmol/L (136-145)
[2025-03-20] MEDS: cefTRIAXone 1,000 mg SDV 1000 MG IVP (08:36)
--- NOTE | 2025-03-20 11:00 | PC.CHAP ---
Pastoral Care Encounter/Spiritual Assessment Type of Contact [] Declined church organist visit [] Patient/Family/Request visit [] Outpatient visit [] Follow-up visit [] Physician referral [] Code/Alert [] Routine visit [] Staff referral [] Actively dying [] Patient sleeping [] Family support [] [] Out of room [] Palliative care [] [] Receiving care in room [] Pre-surgical visit [] Trauma [] Long length of stay [] ICU visit [x] Other:Contact precautions. No visit. Relational/Emotional Strength [] Patient feels connected with others/family/visitors/staff [] Distress [] Loneliness/isolation [] Abandonment Spirituality of Patient [] Person of Beba [] Attends Mandaeism of their Beba [] Believes in Prayer [] Reads Bible or Roman Catholic materials [] There are Spiritual issues to be addressed Upholstery Bundler Interventions [] Prayer [] Active listening [] Non-anxious presence [] Spiritual/emotional support [] Crisis/trauma care [] Spiritual counseling [] Bereavement support [] Provided bereavement packet [] Provided Bible/devotional materials [] Provided toy/stuffed animal, coloring book to patient or family member [] Provided Communion [] Anointing/Cadet [] Salvation [] Completed spiritual assessment [] Other: Impact on Illness or Injury [] Angry [] Fearful [] Anxious [] Often cries [] Exhaustion [] Unable to work [] Unable to attend hoahaoism [] Unable to walk/stand [] Unable to read [] Unable to drive [] Unable to eat/drink [] Unable to sleep [] Unable to be with family [] Patient intubated [] Other: Summary Time spent with patient
--- NOTE | 2025-03-20 12:38 | CTR_ITS ---
PROCEDURE INFORMATION: Exam: CT Chest Without Contrast; Diagnostic Exam date and time: 03/20/2025 4:27 PM Age: 80 years old Clinical indication: Fever; Additional info: Weakness, fever, TECHNIQUE: Imaging protocol: Diagnostic computed tomography of the chest without contrast. Radiation optimization: All CT scans at this facility use at least one of these dose optimization techniques: automated exposure control; mA and/or kV adjustment per patient size (includes targeted exams where dose is matched to clinical indication); or iterative reconstruction. COMPARISON: CR (CHEST, ) 03/17/2025 11:19 PM RADIATION DOSE METRICS: Total DLP (mGy-cm): 521.98 FINDINGS: Lungs: Right upper lobe consolidation with associated interstitial opacities. Dependent atelectasis in bilateral lower lobes. Minimal diffuse interstitial coarsening throughout the lungs. Trace centrilobular emphysema with upper lobe predominance. Pleural spaces: Small right pleural effusion. Trace left pleural fluid. Heart: Unremarkable. No cardiomegaly. No pericardial effusion. Coronary arteries: Multivessel coronary artery calcifications. Lymph nodes: Unremarkable. No enlarged lymph nodes. Vasculature: Moderate atherosclerotic aortic calcifications. The thoracic aorta is tortuous. Diaphragm: Small sliding-type hiatal hernia. Bones/joints: Diffuse osseous demineralization. Mild degenerative changes of the thoracic spine. No acute or aggressive osseous lesion. Soft tissues: Unremarkable. PROCEDURE INFORMATION: Exam: CT Abdomen And Pelvis Without Contrast Exam date and time: 03/20/2025 4:27 PM Age: 80 years old Clinical indication: Fever; Additional info: Weakness, fever, TECHNIQUE: Imaging protocol: Computed tomography of the abdomen and pelvis without contrast. Radiation optimization: All CT scans at this facility use at least one of these dose optimization techniques: automated exposure control; mA and/or kV adjustment per patient size (includes targeted exams where dose is matched to clinical indication); or iterative reconstruction. COMPARISON: CR (CHEST, ) 03/17/2025 11:19 PM RADIATION DOSE METRICS: Total DLP (mGy-cm): 521.98 FINDINGS: Limitations: Suboptimal evaluation without intravenous contrast. Liver: 1.3 cm hypodensity in the anterior aspect of the liver likely represents a cyst or hemangioma. Gallbladder and biliary ducts: Normal. No calcified stones. No ductal dilation. Pancreas: The pancreas is mildly atrophic. No ductal dilatation. Spleen: Normal. No splenomegaly. Adrenal glands: Bilateral adrenal thickening without discrete nodule. Kidneys and ureters: 1.5 cm left renal cortical cysts. No hydronephrosis bilaterally. Stomach and bowel: Sigmoid diverticulosis without evidence of acute diverticulitis. No evidence of bowel obstruction. Moderate stool throughout the colon. Appendix: No evidence of appendicitis. Intraperitoneal space: Unremarkable. No free air. No significant fluid collection. Vasculature: Severe aortoiliac calcifications. Lymph nodes: Unremarkable. No enlarged lymph nodes. Urinary bladder: Air within the urinary bladder. Reproductive: Borderline prostatomegaly. Bones/joints: Moderate to advanced degenerative disc disease most pronounced at L4-L5 and L5-S1. Soft tissues: Unremarkable. CT/[place] [id number] IMPRESSION: 1. Findings compatible with right upper lobe pneumonia. Recommend imaging follow-up after clinical treatment to document resolution. 2. Small right and trace left pleural effusions. IMPRESSION: 1. No acute findings in the abdomen/pelvis. 2. Sigmoid diverticulosis without diverticulitis. 3. Moderate colonic stool can be seen with constipation. 4. Intraluminal air within the urinary bladder. Correlate for recent instrumentation. COMMENTS: Consistent with the [employer]'s Incidental Findings Committee white paper (J Am William Radiol 2018): Any incidental renal lesion less than 1 cm or classified as too small to characterize, or any incidental cystic renal lesion characterized as simple-appearing, is likely benign. No follow-up imaging is recommended for these lesions per consensus recommendations based on imaging criteria.
--- NOTE | 2025-03-20 12:47 | PC.SLP ---
CHAMBER WALKER attempted to work with Mr. Spence at lunch. He refused to eat, and offers to get other food and liquid items not on his tray.
[2025-03-20] MEDS: remdesivir 200 MG in sodium chloride 0.9% (100 ml) 60 ML 100 MG IV (13:39)
--- NOTE | 2025-03-20 16:34 | P.PN_ITS ---
Subjective 2 Subjective: Patient was seen this morning, he is alert to person, to place, not to time, he follows commands, but up in the position, does report poor appetite, daughters at bedside reports poor appetite, he has episodes of confusion during her conversation Vitals/I&O/Wt Last Vital Signs Temp 98.0 F 03/20/25 12:00 Pulse 78 03/20/25 12:00 Resp 16 03/20/25 12:00 BP 157/81 03/20/25 12:00 Pulse Ox 95 03/20/25 12:00 O2 Del Method Room Air 03/20/25 12:00 03/20/25 03/20/25 03/20/25 06:59 14:59 22:59 Intake Total 1000 / 2428.333 Output Total 825 / 1825 Balance 175 / 603.333 Weight last 48 hrs Weight 58.604 kg Weight 56.744 kg Weight 54.159 kg Physical Exam 2 Const: COMMON NORMALS: no acute distress ORIENTATION/CONSCIOUSNESS: Yes awake, Yes oriented to person and Yes oriented to place; not oriented to time Resp: COMMON NORMALS: normal respiratory effort, No retractions, No use of accessory muscles and clear to auscultation bilaterally AUSCULTATION: clear to auscultation bilaterally Cardio: COMMON NORMALS: regular rate, regular rhythm, S1 normal heart sound present and S2 normal heart sound present RATE: regular rate RHYTHM: r egular rhythm HEART SOUNDS: S1 normal heart sound present and S2 normal heart sound present GI: COMMON NORMALS: Normal to inspection, nondistended, normoactive bowel sounds present and non-tender Extremity: COMMON NORMALS: no pedal edema Neuro: SENSORIUM/ORIENTATION: Yes oriented to person, Yes oriented to place and No oriented to time Psych: COMMON NORMALS: mental status grossly normal Urinary Catheter Management: Hughes: Cath Placed During This Visit: yes Reason for Continuing Indwelling Catheter: Acute Urinary Retention or Obstruction Urinary Catheter Date of Insertion: 03/18/25 Urinary Catheter Time of Insertion: 03:36 Data 03/20/25 04:36 03/20/25 04:36 A&P Assessment and plan 1. Acute kidney injury: 2. Altered mental status: 3. Tobacco abuse: 4. Acute CVA (cerebrovascular accident): 5. COVID-19: 6. Community acquired pneumonia of right upper lobe of lun. Aspiration pneumonia: 8. Physical deconditionin. Protein calorie malnutrition: Plan: Acute CVA - Slight left facial droop, slight slurring of his words, receptive aphasia, left upper extremity weakness, left lower extremity weakness, this is all in the setting of global encephalopathy - CT head showing CT/CT head wo con* [id number] IMPRESSION: 1. Age-indeterminate left basal ganglia infarct. 2. 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 3. Given multifocal areas of age-indeterminate, chronic appearing focal infarcts, CTA/MRI brain without contrast can be obtained if clinical concern for acute infarct is present. 4. No acute intracranial hemorrhage. 5. White matter changes favored to represent sequela of chronic microvascular disease. CT/CT angio headneck* [id number] IMPRESSION: No large vessel stenosis or occlusion. IMPRESSION: 1. No large vessel occlusion or stenosis in the neck. 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 2. Partially imaged findings concerning for right upper lobe pneumonia. Correlate with patient history/respiratory status. 3. Emphysema. - His NIH stroke scale 7 - Last known well normal is unknown, found down by friends, friends had to break it in, according to ER notes he been walking slower for the last few weeks, eating less, somnolent on arrival - not a tPA candidate, as last known well normal is likely greater than 24 hours - Not embolectomy candidate - What I think has happened is that he had a stroke, which caused him to go down, and aspirated -Symptoms significantly improved, does have some receptive aphasia, some productive aphasia, no left upper or left lower extremity weakness Plan - Monitor in the hospital - PT OT - Speech therapy eval - NIH stroke scale - Neurochecks - Cardiac echo - MRI brain no acute findings - Aspirin, statin - Will monitor closely Daughter does report a history of alcoholism - Will start on thiamine and folic acid - Monitor for withdrawals Right upper lobe pneumonia, aspiration pneumonia - Rocephin - Azithromycin Dehydration, MARIANNE - IV fluids, will de-escalate COVID-19 - Low-grade fever, - Started on Decadron, Diffuse encephalopathy - Component of acute stroke, right upper lobe pneumonia, COVID-19, dehydration - Monitor mentation Physical deconditioning, protein, malnutrition cachexia, muscle loss - PT OT Full code Lovenox for DVT prophylaxis Plan for today, patient had low-grade fever overnight, was started on remdesivir for COVID, start Decadron, due to fevers, increased confusion, will do CT chest abdomen pelvis, PDMP PDMP Reviewed: Not Reviewed Attestations 2 Medical Necessity Statement*: Patient requires hospitalization for encephalopathy, fevers, COVID-19, CVA, pneumonia Diagnoses Acute kidney injury N17.9 Altered mental status R41.82 Tobacco abuse Z72.0 Acute CVA (cerebrovascular accident) I63.9 COVID-19 U07.1 Community acquired pneumonia of right upper lobe of lung J18.9 Aspiration pneumonia J69.0 Physical deconditioning R53.81 Protein calorie malnutrition E46
[2025-03-20] MEDS: thiamine 100 mg/mL 2mL SDV 200 MG IVP (17:42)
[2025-03-21] VITALS (8 sets, daily range): BP systolic 128–157; BP diastolic 58–94; PULSE 58–91; RESP 15–18; TEMP 36.7–37.1; O2SAT 93–95
[2025-03-21] MEDS: thiamine 100 mg/mL 2mL SDV 200 MG IVP ×3 (00:16→18:12)
[2025-03-21 04:25] LABS: Hematocrit 41.0 % (37-53); Hemoglobin 14.30 g/dL (11.27-16.99); Mean Corpuscular HGB Conc 34.9 g/dL (30-55); Mean Corpuscular Hemoglobin 30.6 pg (27-33); Mean Corpuscular Volume 87.8 fl (82-101); Nucleated Red Blood Cells % 0 %; Platelet Count 208 10^3/cmm (157-399); Red Blood Count 4.67 10^6/uL (3.85-5.65); White Blood Count 9.07 10^3/uL (3.29-11.43)
[2025-03-21 04:46] LABS: Blood Urea Nitrogen 17 mg/dL (8-23); Calcium 8.5 mg/dL (8.5-10.5); Carbon Dioxide 22 mmol/L (22-29); Chloride 95 mmol/L (98-107); Creatinine Clr Calc Pharmacy 62.0633; Glucose 93 mg/dL (65-115); Osmolality Calculated 277 mOsm/kg (285-295); Sodium 133 mmol/L (136-145)
[2025-03-21 04:48] LABS: Anion Gap 19.9 (5-19); Potassium 3.9 mmol/L (3.5-5.1)
--- NOTE | 2025-03-21 06:58 | PC.SOCIAL ---
IMM Update pg 2 of IMM Updated and reviewed w/ patients daughter. Copy provided and copy dated, initialed and placed in chart.
[2025-03-21] MEDS: polyethylene glycol 3350 Pkt 17 gm PO (09:20)
[2025-03-21] MEDS: cefTRIAXone 1,000 mg SDV 1000 MG IVP (09:21)
--- NOTE | 2025-03-21 11:21 | P.PN_ITS ---
Subjective 2 Subjective: Patient was seen this morning, currently alert to person, to place, not to time, denies any fevers, no chills, no nausea, no vomiting on examination no facial droop, does have some receptive aphasia, some productive aphasia I cannot discern any left upper or left lower extremity weakness Vitals/I&O/Wt Last Vital Signs Temp 98.1 F 03/21/25 11:18 Pulse 73 03/21/25 11:18 Resp 15 03/21/25 11:18 BP 155/86 03/21/25 11:18 Pulse Ox 93 03/21/25 11:18 O2 Del Method Room Air 03/21/25 11:18 03/20/25 03/21/25 03/21/25 22:59 06:59 14:59 Intake Total 100 / 100 Output Total 400 / 400 Balance -300 / -300 Weight last 48 hrs Weight 52.702 kg Weight 58.604 kg Physical Exam 2 Const: COMMON NORMALS: no acute distress ORIENTATION/CONSCIOUSNESS: Yes awake, Yes oriented to person and Yes oriented to place Resp: COMMON NORMALS: normal respiratory effort, No retractions, No use of accessory muscles and clear to auscultation bilaterally AUSCULTATION: clear to auscultation bilaterally Cardio: COMMON NORMALS: regular rate, regular rhythm, S1 normal heart sound present and S2 normal heart sound present RATE: regular rate RHYTHM: r egular rhythm HEART SOUNDS: S1 normal heart sound present and S2 normal heart sound present GI: COMMON NORMALS: Normal to inspection, nondistended, normoactive bowel sounds present and non-tender Extremity: COMMON NORMALS: no calf tenderness and no pedal edema Neuro: SENSORIUM/ORIENTATION: Yes oriented to person and Yes oriented to place Urinary Catheter Management: Hughes: Cath Placed During This Visit: yes, but has since been removed by the nurse Reason for Continuing Indwelling Catheter: Decision to DC Catheter Urinary Catheter Date of Insertion: 03/18/25 Urinary Catheter Time of Insertion: 03:36 Date Urinary Catheter Removed: 03/20/25 Time Urinary Catheter Discontinued: 11:00 Data 03/21/25 03:40 03/21/25 03:40 A&P Assessment and plan 1. Acute kidney injury: 2. Altered mental status: 3. Tobacco abuse: 4. Acute CVA (cerebrovascular accident): 5. COVID-19: 6. Community acquired pneumonia of right upper lobe of lun. Aspiration pneumonia: 8. Physical deconditionin. Protein calorie malnutrition: Plan: Acute CVA - Slight left facial droop, slight slurring of his words, receptive aphasia, left upper extremity weakness, left lower extremity weakness, this is all in the setting of global encephalopathy - CT head showing CT/CT head wo con* [id number] IMPRESSION: 1. Age-indeterminate left basal ganglia infarct. 2. 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 3. Given multifocal areas of age-indeterminate, chronic appearing focal infarcts, CTA/MRI brain without contrast can be obtained if clinical concern for acute infarct is present. 4. No acute intracranial hemorrhage. 5. White matter changes favored to represent sequela of chronic microvascular disease. CT/CT angio headneck* [id number] IMPRESSION: No large vessel stenosis or occlusion. IMPRESSION: 1. No large vessel occlusion or stenosis in the neck. 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 2. Partially imaged findings concerning for right upper lobe pneumonia. Correlate with patient history/respiratory status. 3. Emphysema. - His NIH stroke scale 7 - Last known well normal is unknown, found down by friends, friends had to break it in, according to ER notes he been walking slower for the last few weeks, eating less, somnolent on arrival - not a tPA candidate, as last known well normal is likely greater than 24 hours - Not embolectomy candidate - What I think has happened is that he had a stroke, which caused him to go down, and aspirated -Symptoms significantly improved, does have some receptive aphasia, some productive aphasia, no left upper or left lower extremity weakness Plan - Monitor in the hospital - PT OT - Speech therapy eval - NIH stroke scale - Neurochecks - Cardiac echo - MRI brain no acute findings - Aspirin, statin - Will monitor closely Daughter does report a history of alcoholism - Attention component of Warnicke's encephalopathy? Start IV thiamine -Folic acid - Monitor for withdrawals Right upper lobe pneumonia, aspiration pneumonia [place] [id number] IMPRESSION: 1. Findings compatible with right upper lobe pneumonia. Recommend imaging follow-up after clinical treatment to document resolution. 2. Small right and trace left pleural effusions. - Rocephin - Azithromycin Dehydration, MARIANNE - Resolved COVID-19 - Low-grade fever, - Started on Decadron, does appear Diffuse encephalopathy - Component of acute stroke, right upper lobe pneumonia, COVID-19, dehydration -Potentially Warnicke's encephalopathy associated with encephalopathy - Monitor mentation Physical deconditioning, protein, malnutrition cachexia, muscle loss - PT OT Full code Lovenox for DVT prophylaxis Plan for today, IV steroids, IV remdesivir, IV antibiotics, PT OT, IV thiamine PDMP PDMP Reviewed: Not Reviewed Attestations 2 Medical Necessity Statement*: Requires hospitalization for generalized weakness, deconditioning, right upper lobe pneumonia, COVID-19 pneumonia, acute CVA, possible Warnicke's encephalopathy Diagnoses Acute kidney injury N17.9 Altered mental status R41.82 Tobacco abuse Z72.0 Acute CVA (cerebrovascular accident) I63.9 COVID-19 U07.1 Community acquired pneumonia of right upper lobe of lung J18.9 Aspiration pneumonia J69.0 Physical deconditioning R53.81 Protein calorie malnutrition E46
[2025-03-21] MEDS: remdesivir 100 MG in sodium chloride 0.9% (100 ml) 80 ML IV (18:12)
[2025-03-22] VITALS: BP 118/75; PULSE 84; RESP 15; TEMP 36.5; O2SAT 92
[2025-03-22] MEDS: thiamine 100 mg/mL 2mL SDV 200 MG IVP ×2 (01:55→08:45)
[2025-03-22 04:00] VITALS: BP 169/93; PULSE 82; RESP 15; TEMP 36.7; O2SAT 93
[2025-03-22 05:08] LABS: Hematocrit 44.0 % (37-53); Hemoglobin 14.90 g/dL (11.27-16.99); Mean Corpuscular HGB Conc 33.9 g/dL (30-55); Mean Corpuscular Hemoglobin 30.4 pg (27-33); Mean Corpuscular Volume 89.8 fl (82-101); Nucleated Red Blood Cells % 0 %; Platelet Count 229 10^3/cmm (157-399); Red Blood Count 4.90 10^6/uL (3.85-5.65); White Blood Count 10.56 10^3/uL (3.29-11.43)
[2025-03-22 05:29] LABS: Anion Gap 18.1 (5-19); Blood Urea Nitrogen 26 mg/dL (8-23); Calcium 8.4 mg/dL (8.5-10.5); Carbon Dioxide 22 mmol/L (22-29); Chloride 97 mmol/L (98-107); Creatinine Clr Calc Pharmacy 55.8129; Glucose 120 mg/dL (65-115); Osmolality Calculated 282 mOsm/kg (285-295); Potassium 4.1 mmol/L (3.5-5.1); Sodium 133 mmol/L (136-145)
[2025-03-22 07:43] VITALS: BP 133/79; PULSE 82; RESP 17; TEMP 36.6; O2SAT 93
[2025-03-22 07:58] VITALS: PULSE 65; RESP 16; O2SAT 93
[2025-03-22] MEDS: cefTRIAXone 1,000 mg SDV 1000 MG IVP (08:45)
--- NOTE | 2025-03-22 11:19 | P.DS_ITS ---
Discharge Providers Date of Admission: 03/18/25 03:08 Date of Discharge: March 22, 2025 Attending Provider at Admission: Jaison Vaughn MD Attending Provider at Discharge: Johnny Chaney MD Diagnoses at Discharge Discharge Diagnosis 1. Acute kidney injury: 2. Altered mental status: 3. Tobacco abuse: 4. Acute CVA (cerebrovascular accident): 5. COVID-19: 6. Community acquired pneumonia of right upper lobe of lun. Aspiration pneumonia: 8. Physical deconditionin. Protein calorie malnutrition: Reason for Visit Reason for Visit: WEAKNESS Hospital Course Hospital Course This is a 80-year-old male with a past medical history alcoholism, smoking, who presents [facility] for being found down, altered mental status, febrile Patient was admitted to [facility] for acute CVA - Slight left facial droop, slight slurring of his words, receptive aphasia, left upper extremity weakness, left lower extremity weakness, this is all in the setting of global encephalopathy - CT head showing CT/CT head wo con* [id number] IMPRESSION: 1. Age-indeterminate left basal ganglia infarct. 2. 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 3. Given multifocal areas of age-indeterminate, chronic appearing focal infarcts, CTA/MRI brain without contrast can be obtained if clinical concern for acute infarct is present. 4. No acute intracranial hemorrhage. 5. White matter changes favored to represent sequela of chronic microvascular disease. CT/CT angio headneck* [id number] IMPRESSION: No large vessel stenosis or occlusion. IMPRESSION: 1. No large vessel occlusion or stenosis in the neck. 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 2. Partially imaged findings concerning for right upper lobe pneumonia. Correlate with patient history/respiratory status. 3. Emphysema. - His NIH stroke scale 7 - Last known well normal is unknown, found down by friends, friends had to break it in, according to ER notes he been walking slower for the last few weeks, eating less, somnolent on arrival - not a tPA candidate, as last known well normal is likely greater than 24 hours - Not embolectomy candidate - What I think has happened is that he had a stroke, which caused him to go down, and aspirated -Symptoms significantly improved, does have some receptive aphasia, some productive aphasia, no left upper or left lower extremity weakness Daughter reports a history of alcoholism, potentially patient's symptomatology could be associate with Wernicke's encephalopathy, managed on IV thiamine, CIWA protocol - Overall clinically proved alert oriented x 2, following all commands, discharged on folic acid and thiamine For right upper lobe pneumonia, aspiration pneumonia managed with IV antibiotics, overall clinically improved, discharged on p.o. antibiotics For COVID-19 pneumonia, received inpatient remdesivir, Decadron, remains afebrile, has completed 2 days of treatment For physical deconditioning, protein, attrition, cachexia, muscle loss, discharge to nursing facility for physical therapy Hydration, received IV fluids, resolved Physical Exam Const: COMMON NORMALS: no acute distress ORIENTATION/CONSCIOUSNESS: Yes awake, Yes oriented to person and Yes oriented to place; not oriented to time Resp: COMMON NORMALS: normal respiratory effort, No retractions, No use of accessory muscles and clear to auscultation bilaterally AUSCULTATION: clear to auscultation bilaterally Cardio: COMMON NORMALS: regular rate, regular rhythm, S1 normal heart sound present and S2 normal heart sound present RATE: regular rate RHYTHM: regular rhythm HEART SOUNDS: S1 normal heart sound present and S2 normal heart sound present GI: COMMON NORMALS: Normal to inspection, nondistended, normoactive bowel sounds present and non-tender Extremity: COMMON NORMALS: no pedal edema Neuro: SENSORIUM/ORIENTATION: Yes oriented to person, Yes oriented to place and No oriented to time Psych: COMMON NORMALS: mental status grossly normal Urinary Catheter Management: Hughes: Cath Placed During This Visit: yes, but has since been removed by the nurse Reason for Continuing Indwelling Catheter: Decision to DC Catheter Urinary Catheter Date of Insertion: 03/18/25 Urinary Catheter Time of Insertion: 03:36 Date Urinary Catheter Removed: 03/21/25 Time Urinary Catheter Discontinued: 13:00 Discharge Data Studies Completed and Pending Completed Studies During Hospitalization Category Date Time Status CT chest abdomen pelvis [[place] [id number] Cat Scan 03/20/25 12:38 Completed ] Routine CT head wo con* [id number] Stat Cat Scan 03/17/25 22:54 Completed CTA head neck [CT angio headneck* [id number]] Stat Cat Scan 03/18/25 00:37 Completed XR chest 1V portable [id number] Stat Exams 03/17/25 22:54 Completed MR head wo con* [id number] Routine MRI 03/18/25 09:56 Completed CV. echo complete* [id number] Routine Ultrasound 03/18/25 08:43 Completed Pending at discharge Category Date Time Status Blood Culture Stat Lab 03/17/25 23:21 Results Radiology Impressions Chest X-Ray 03/17/25 22:54 IMPRESSION: Findings concerning for asymmetric pulmonary edema and/or interstitial pneumonia of the right upper lobe. Head CT 03/17/25 22:54 IMPRESSION: 1. Age-indeterminate left basal ganglia infarct. 2. 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 3. Given multifocal areas of age-indeterminate, chronic appearing focal infarcts, CTA/MRI brain without contrast can be obtained if clinical concern for acute infarct is present. 4. No acute intracranial hemorrhage. 5. White matter changes favored to represent sequela of chronic microvascular disease. ADDENDUM: 03/18/25 0039 THIS REPORT CONTAINS FINDINGS THAT MAY BE CRITICAL TO PATIENT CARE. The findings were verbally communicated via telephone conference with HAMMAD WALKER at 12:37 AM CDT on 03/18/2025. The findings were acknowledged and understood. Head/Neck CTA 03/18/25 00:37 IMPRESSION: No large vessel stenosis or occlusion. IMPRESSION: 1. No large vessel occlusion or stenosis in the neck. 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 2. Partially imaged findings concerning for right upper lobe pneumonia. Correlate with patient history/respiratory status. 3. Emphysema. REFERENCES: NASCET CRITERIA. The degree of stenosis in the cervical segment of the internal carotid artery is based on NASCET criteria. Normal is no stenosis. Mild is less than 50% stenosis. Moderate is 50-69% stenosis. Severe is 70% to 99% stenosis. Total occlusion is no detectable patent lumen. Head MRI 03/18/25 09:56 IMPRESSION: 1. Limited exam due to patient motion artifact where several sequences are nondiagnostic. 2. Of note, the DWI/ADC and GRE sequences are adequate without evidence of recent infarct or acute intracranial hemorrhage. 3. Suggested atrophy and supratentorial white matter T2 FLAIR hyperintensities, nonspecific although characteristic of chronic small vessel disease. Chest/Abdomen/Pelvis CT 03/20/25 12:38 IMPRESSION: 1. Findings compatible with right upper lobe pneumonia. Recommend imaging follow-up after clinical treatment to document resolution. 2. Small right and trace left pleural effusions. IMPRESSION: 1. No acute findings in the abdomen/pelvis. 2. Sigmoid diverticulosis without diverticulitis. 3. Moderate colonic stool can be seen with constipation. 4. Intraluminal air within the urinary bladder. Correlate for recent instrumentation. COMMENTS: Consistent with the [employer]'s Incidental Findings Committee white paper (J Am William Radiol 2018): Any incidental renal lesion less than 1 cm or classified as too small to characterize, or any incidental cystic renal lesion characterized as simple-appearing, is likely benign. No follow-up imaging is recommended for these lesions per consensus recommendations based on imaging criteria. Laboratory Results WBC 10.56 10^3/uL (3.29-11.43) 03/22/25 04:49 RBC 4.90 10^6/uL (3.85-5.65) 03/22/25 04:49 Hgb 14.90 g/dL (11.27-16.99) 03/22/25 04:49 Hct 44.0 % (37-53) 03/22/25 04:49 MCV 89.8 fl (82-101) 03/22/25 04:49 MCH 30.4 pg (27-33) 03/22/25 04:49 MCHC 33.9 g/dL (30-55) 03/22/25 04:49 RDW 13.9 % (12.1-15.1) 03/22/25 04:49 Plt Count 229 10^3/cmm (157-399) 03/22/25 04:49 MPV 11.0 fL (7.4-10.4) H 03/22/25 04:49 Neut % (Auto) 71.0 % 03/22/25 04:49 Lymph % (Auto) 17.8 % 03/22/25 04:49 [place] % (Auto) 9.6 % 03/22/25 04:49 Eos % (Auto) 0.0 % 03/22/25 04:49 Baso % (Auto) 0.1 % 03/22/25 04:49 Neut # (Auto) 7.50 10^3/uL (1.8-7.7) 03/22/25 04:49 Lymph # (Auto) 1.9 10^3/uL (0.8-4.8) 03/22/25 04:49 [place] # (Auto) 1.0 10^3/uL (0.2-0.9) H 03/22/25 04:49 Eos # (Auto) 0.0 10^3/uL (0.0-0.8) 03/22/25 04:49 Baso # (Auto) 0.0 10^3/uL (0.0-0.1) 03/22/25 04:49 Nucleated RBC % (auto) 0 % 03/22/25 04:49 Nucleated RBCs # 0.0 /100WBC 03/22/25 04:49 PT 12.50 SECONDS (12.1-14.9) 03/17/25 23:21 INR 0.87 (0.8-1.2) 03/17/25 23:21 APTT 33.2 SECONDS (23.9-36.7) 03/17/25 23:21 D-Dimer 5.79 ug/mLFEU (0-0.59) H 03/17/25 23:21 Sodium 133 mmol/L (136-145) L 03/22/25 04:49 Potassium 4.1 mmol/L (3.5-5.1) 03/22/25 04:49 Chloride 97 mmol/L (98-107) L 03/22/25 04:49 Carbon Dioxide 22 mmol/L (22-29) 03/22/25 04:49 Anion Gap 18.1 (5-19) 03/22/25 04:49 BUN 26 mg/dL (8-23) H 03/22/25 04:49 Creatinine 0.7 mg/dL (0.7-1.2) 03/22/25 04:49 GFR Calculation Not Reportable 03/22/25 04:49 Glucose 120 mg/dL (65-115) H 03/22/25 04:49 Calculated Osmolality 282 mOsm/kg (285-295) L 03/22/25 04:49 Lactic Acid 3.0 mmol/L (0.5-2.2) H 03/17/25 23:21 Lactic Acid (Sepsis) 1.8 mmol/L (0.5-2.2) 03/18/25 02:15 Calcium 8.4 mg/dL (8.5-10.5) L 03/22/25 04:49 Total Bilirubin 0.7 mg/dL (0.15-1.2) 03/17/25 23:21 AST 29 U/L (0-40) 03/17/25 23:21 ALT 17 U/L (0-41) 03/17/25 23:21 Alkaline Phosphatase 94 U/L (40-130) 03/17/25 23:21 Creatine Kinase 324 U/L (39-308) H* 03/18/25 08:57 C-Reactive Protein 118.8 mg/L (0.0-4.9) H 03/17/25 23:21 Total Protein 7.9 g/dL (6.6-8.7) 03/17/25 23:21 Albumin 4.1 g/dL (3.5-5.2) 03/17/25 23:21 Globulin 3.8 g/dL (1.3-4.6) 03/17/25 23:21 Procalcitonin 0.66 ng/mL (0-0.5) H 03/17/25 23:21 Urine Color Dark yellow (Yellow) A 03/18/25 00:15 Urine Appearance Cloudy (CLEAR) A 03/18/25 00:15 Urine pH 5.0 (5-7) 03/18/25 00:15 Ur Specific [place] 1.018 (1.005-1.030) 03/18/25 00:15 Urine Protein 2+ (Negative) A 03/18/25 00:15 Urine Glucose (UA) Negative (Normal) 03/18/25 00:15 Urine Ketones Trace (Negative) 03/18/25 00:15 Urine Blood 1+ (Negative) A 03/18/25 00:15 Urine Nitrate Negative (Negative) 03/18/25 00:15 Urine Bilirubin Negative (Negative) 03/18/25 00:15 Urine Urobilinogen 1.0 mg/dL (Negative) 03/18/25 00:15 Ur Leukocyte Esterase Trace (Negative) A 03/18/25 00:15 Urine RBC 0-2 /hpf (0-2) 03/18/25 00:15 Urine WBC 11-20 /hpf (0-5) H 03/18/25 00:15 Ur Squamous Epith Cells 21-50 /hpf (0-5) H 03/18/25 00:15 Amorphous Sediment Not Reportable 03/18/25 00:15 Urine Bacteria None seen /hpf (NONE) 03/18/25 00:15 Hyaline Casts 82.33 /lpf 03/18/25 00:15 Fine Granular Casts 0-4 /lpf H 03/18/25 00:15 Other Casts Waxy /lpf 03/18/25 00:15 Adenovirus (PCR) Not detected (NOT DETECT) 03/18/25 00:30 C. pneumoniae DNA (PCR) Not detected (NOT DETECT) 03/18/25 00:30 Coronavirus 229E (PCR) Not detected (NOT DETECT) 03/18/25 00:30 Human Metapneumovir PCR Not detected (NOT DETECT) 03/18/25 00:30 Influenza A (H1) PCR Not detected (NOT DETECT) 03/18/25 00:30 Influ A (H1/09) PCR Not detected (NOT DETECT) 03/18/25 00:30 Influenza A (H3) PCR Not detected (NOT DETECT) 03/18/25 00:30 Influenza Type A (PCR) Not detected (NOT DETECT) 03/18/25 00:30 Influenza Type B (PCR) Not detected (NOT DETECT) 03/18/25 00:30 M. pneumoniae (PCR) Not detected (NOT DETECT) 03/18/25 00:30 Parainfluenza 1 (PCR) Not detected (NOT DETECT) 03/18/25 00:30 Parainfluenza 2 (PCR) Not detected (NOT DETECT) 03/18/25 00:30 Parainfluenza 3 (PCR) Not detected (NOT DETECT) 03/18/25 00:30 Parainfluenza 4 (PCR) Not detected (NOT DETECT) 03/18/25 00:30 RSV Type A (PCR) Not detected (NOT DETECT) 03/18/25 00:30 RSV Type B (PCR) Not detected (NOT DETECT) 03/18/25 00:30 Entero/Rhino (PCR) Not detected (NOT DETECT) 03/18/25 00:30 SARS-CoV-2 (PCR) Detected (NOT DETECT) A 03/18/25 00:30 Vitals Last Vital Signs Temp 98 F 03/22/25 07:43 Pulse 65 03/22/25 07:58 Resp 16 03/22/25 07:58 BP 133/79 03/22/25 07:43 Pulse Ox 93 03/22/25 07:58 O2 Del Method Room Air 03/22/25 07:58 Discharge Plan Discharge Patient Disposition: Xfer SNF Condition: Stable Prescriptions: New nicotine 21 mg/24 hr Patch 24 Hour 1 patch transdermal DAILY 28 Days Qty: 28 0RF aspirin 81 mg Tablet,Delayed Release (Dr/Ec) 81 mg PO DAILY 30 Days Qty: 30 0RF atorvastatin 40 mg Tablet 40 mg PO BEDTIME 30 Days Qty: 30 0RF docusate sodium 100 mg Capsule 100 mg PO BID@0500,1700 30 Days Qty: 30 0RF folic acid 1 mg Tablet 1 mg PO BID@0500,1700 30 Days Qty: 60 0RF cefdinir 300 mg capsule 300 mg PO BID 3 Days Qty: 6 0RF albuterol sulfate [Ventolin HFA] 90 mcg/actuation HFA aerosol inhaler 1 inh inhalation Q6H PRN (Reason: shortness of breath or wheezing) Qty: 8.5 0RF thiamine HCl (vitamin B1) 100 mg tablet 100 mg PO DAILY 30 Days Qty: 30 0RF benzonatate 100 mg Capsule 200 mg PO TID PRN (Reason: Cough) 7 Days Qty: 21 0RF azithromycin 250 mg Tablet 250 mg PO DAILY 3 Days Qty: 3 0RF polyethylene glycol 3350 [Miralax] 17 gram powder in packet 17 g PO DAILY PRN (Reason: constipation) 30 Days Qty: 30 0RF Continued cholecalciferol (vitamin D3) [Vitamin D3] 50 mcg (2,000 unit) Capsule 50 mcg PO TID Discontinued multivitamin Tablet 1 tab PO DAILY Discharge Order = DC NOW: Discharge Order (Routine); Ordered 03/22/25 Ordered By: Johnny Chaney Referrals: [facility] [Outside] Flower Clemens MD [Physician, Neurology] - 1 week Referral Note: We have notified your physician's clinic of the need for a follow-up appointment to be scheduled. If you have not heard from them within the next 2 business days, please call them directly. Discharge Diet: Advance as tolerated Discharge Activity: Resume usual activity Patient Instructions: Opioid Safety, Patient Portal & Keshav Instructions Activity Restrictions/Additional Instructions: - Please follow-up with neurology - Please take antibiotics as prescribed - Dysphagia level diet as prescribed - Aspiration precautions - Continue thiamine, folic acid -Monitor for hypercoagulability with COVID-19 - Monitor for strokelike symptoms, if so call 911 Discharge Attestations Time Spent in Discharge Care*: greater than 30 min Time Spent in Smoking Cessation: more than 10 minutes Smoking cessation counseling Quality Metrics Clinical Quality Measures [ Cerebrovascular Accident { Contraindication to Antithrombotic: None; antithrombotic prescribed; Contraindication to Anticoagulation: Overlap treatment not indicated; Contraindication to Statin: None; Statin prescribed;}] Coding Level of Care Code 65600 Total time (in minutes) for Discharge: 45 Diagnoses Acute kidney injury N17.9 Altered mental status R41.82 Tobacco abuse Z72.0 Acute CVA (cerebrovascular accident) I63.9 COVID-19 U07.1 Community acquired pneumonia of right upper lobe of lung J18.9 Aspiration pneumonia J69.0 Physical deconditioning R53.81 Protein calorie malnutrition E46
--- NOTE | 2025-03-22 11:26 | PC.NUTR ---
Ensure 3 times Daily /MD
--- NOTE | 2025-03-22 12:24 | PC.NURSE ---
This nurse called report to JO ANN Vuong at [facility] [place] at 1219. Transport should be here around 1300 to get patient.
[2025-03-22 12:58] VITALS: BP 130/78; PULSE 66; O2SAT 94
== END 2025-03-22 12:59 | disposition skilled nursing facility (03) | DRG 177 ==
LOC: ER 03-18 02:17 → MEDSURG 03-18 03:33
PROVIDERS: Admitting Provider Internal Medicine; Emergency Provider Student in an Organized Health Care Education/Training Program; Visit Provider Family Medicine
DX: U07.1 COVID-19 (principal); I63.9 Cerebral infarction, unspecified; J12.82 Pneumonia due to coronavirus disease 2019; J69.0 Pneumonitis due to inhalation of food and vomit; N17.9 Acute kidney failure, unspecified; E46 Unspecified protein-calorie malnutrition; Z68.1 Body mass index [BMI] 19.9 or less, adult; G81.94 Hemiplegia, unspecified affecting left nondominant side; R47.01 Aphasia; E51.2 Wernicke's encephalopathy; M62.82 Rhabdomyolysis; R29.810 Facial weakness; I10 Essential (primary) hypertension; R29.707 NIHSS score 7; R47.81 Slurred speech; J43.9 Emphysema, unspecified; F17.210 Nicotine dependence, cigarettes, uncomplicated; F10.21 Alcohol dependence, in remission; E86.0 Dehydration; I70.8 Atherosclerosis of other arteries; M62.50 Muscle wasting and atrophy, not elsewhere classified, unspecified site
CPT/HCPCS: 36415; 51702; 70450; 70496; 70498; 70551; 71045; 71250; 74176; 80048; 80053; 81001; 82550; 83605; 84145; 85025; 85378; 85610; 85730; 86140; 87040; 87486; 87581; 87633; 92507; 92523; 92526; 92610; 93306; 94664; 96361; 96372; 96374; 96375; 97110; 97161; 97167; 97530; 97535; 99285; J0131; J0248; J0456; J0692; J0696; J1100; J1650; J3411; J3480; J3535; J7030; J7050; J7120; J9999; Q0144